=== PATIENT | male | born 1945 | race Caucasian/White ===

== ENCOUNTER 2021-10-31 12:17 | Inpatient (IN) ==
[2021-10-31] MEDS ORDERED: Ipratropium/Albuterol Neb 3 ML IH ONE (13:48)
[2021-10-31 14:58] LABS: Basophils % 0.2 %; Eosinophils % 0.2 %; Hematocrit 35.6 % (37.5-50.1); Hemoglobin 11.5 g/dL (12.9-16.9); Immature Granulocytes % 0.4 % (0-4); Lymphocytes # 0.8 K/mcL (0.6-4.6); Lymphocytes % 17.4 %; Mean Corpuscular HGB Conc 32.3 g/dL (31.6-35.5); Mean Platelet Volume 10.4 fL (9.4-12.4); Monocytes # 0.3 K/mcL (0.0-1.3); Monocytes % 6.6 %; Neutrophils # 3.6 K/mcL (1.6-8.9); Platelet Count 119 K/mcL (140-400); Red Blood Count 3.71 M/mcL (4.19-5.50); Red Cell Distribution Width 13.7 % (11.5-14.5); Segmented Neutrophils % 75.2 %; White Blood Count 4.8 K/mcL (4.3-11.1)
[2021-10-31 15:59] LABS: BUN/Creatinine Ratio 10 (6-26); Blood Urea Nitrogen 14 mg/dL (8-23); Calcium 8.6 mg/dL (8.6-10.3); Carbon Dioxide 25 mEq/L (23-29); Chloride 102 mEq/L (98-107); Glucose 90 mg/dL (70-105); Osmolality,Calculated 280 (280-300); Potassium 3.8 mEq/L (3.5-5.1); Sodium 135 mEq/L (136-145); Troponin I 0.04 ng/mL (< 0.04); eGFR For African Americans > 60 (> 60); eGFR For Non-African Americans 50 (> 60)
[2021-10-31] MEDS ORDERED: Aspirin 325 MG TABLET PO ONE (16:10)
[2021-10-31] MEDS ORDERED: Ondansetron 4 MG/2 ML VIAL IVP PRN (16:36)
[2021-10-31] MEDS ORDERED: Acetaminophen 325 MG TABLET PO PRN (16:36)
[2021-10-31] MEDS ORDERED: Aspirin 81 MG TAB.CHEW PO ONE (16:36)
[2021-10-31] MEDS ORDERED: Melatonin 3 MG TABLET PO PRN (16:36)
[2021-10-31] MEDS ORDERED: Ringers Solution, Lactated 500 ML IVC ONE (18:04)
[2021-10-31] MEDS ORDERED: Ringers Solution, Lactated 1,000 ML IVC ONE (18:04)
[2021-10-31] MEDS: traZODone 50 MG TABLET PO SCH (19:36)
[2021-10-31 20:58] LABS: Influenza A PCR Negative (Negative); Influenza B PCR Negative (Negative); Resp. Syncytial Virus PCR Negative (Negative)
[2021-10-31 21:13] LABS: SARS-CoV-2 by PCR (In House) Positive (Negative)
[2021-11-01] MEDS ORDERED: *HR* Enoxaparin 40 MG/0.4 ML SYRINGE SQ SCH (06:00)
[2021-11-01 07:43] LABS: Hemoglobin 11.5 g/dL (12.9-16.9)
[2021-11-01 07:45] LABS: Hematocrit 35.6 % (37.5-50.1); Immature Platelets 4.7 % (1.1-6.1); Mean Corpuscular HGB Conc 32.3 g/dL (31.6-35.5); Mean Corpuscular Hemoglobin 31.1 pg (28.0-33.3); Mean Corpuscular Volume 96.2 fL (83.0-100.0); Mean Platelet Volume 10.9 fL (9.4-12.4); Red Blood Count 3.7 M/mcL (4.19-5.50); Red Cell Distribution Width 13.3 % (11.5-14.5); White Blood Count 5.3 K/mcL (4.3-11.1)
[2021-11-01 08:03] LABS: BUN/Creatinine Ratio 13 (6-26); Blood Urea Nitrogen 16 mg/dL (8-23); Calcium 8.9 mg/dL (8.6-10.3); Carbon Dioxide 25 mEq/L (23-29); Chloride 103 mEq/L (98-107); Glucose 109 mg/dL (70-105); Magnesium 1.8 mg/dL (1.6-2.6); Osmolality,Calculated 284 (280-300); Phosphorous 2.2 mg/dL (2.7-4.5); Potassium 3.9 mEq/L (3.5-5.1); Sodium 136 mEq/L (136-145); Troponin I < 0.03 ng/mL (< 0.04); eGFR For African Americans > 60 (> 60); eGFR For Non-African Americans 59 (> 60)
[2021-11-01] MEDS ORDERED: Dexamethasone Sodium Phos/PF 10 MG/ML VIAL IVP SCH (09:00)
[2021-11-01] MEDS: Aspirin 81 MG TAB.CHEW PO SCH (09:27)
[2021-11-01] MEDS: Venlafaxine XR (24 HR) 150 MG CAP.ER.24H PO SCH (09:27)
[2021-11-01] MEDS: Finasteride 5 MG TABLET PO SCH (09:27)
[2021-11-01] MEDS: lisinopriL 10 MG TABLET PO SCH (14:05)
[2021-11-01] MEDS: Isosorbide MONOnitrate (24 HR) 60 MG TAB.ER.24H PO SCH (14:05)
[2021-11-01] MEDS: traZODone 50 MG TABLET PO SCH (22:22)
[2021-11-01] MEDS: *HR* Dabigatran 150 MG CAPSULE PO SCH (22:22)
[2021-11-02] MEDS: Venlafaxine XR (24 HR) 150 MG CAP.ER.24H PO SCH (10:49)
[2021-11-02] MEDS: *HR* Dabigatran 150 MG CAPSULE PO SCH ×2 (10:49→20:13)
[2021-11-02] MEDS: Furosemide 20 MG/2 ML VIAL IVP SCH ×2 (10:50→18:19)
[2021-11-02] MEDS: Finasteride 5 MG TABLET PO SCH (10:50)
[2021-11-02] MEDS: Dexamethasone Sodium Phos/PF 10 MG/ML VIAL IVP SCH (10:50)
[2021-11-02] MEDS: Aspirin 81 MG TAB.CHEW PO SCH (10:50)
[2021-11-02] MEDS: Isosorbide MONOnitrate (24 HR) 60 MG TAB.ER.24H PO SCH (10:51)
[2021-11-02] MEDS: lisinopriL 10 MG TABLET PO SCH (10:51)
[2021-11-02] MEDS: traZODone 50 MG TABLET PO SCH (20:13)
[2021-11-03 03:07] LABS: Hematocrit 33.4 % (37.5-50.1); Hemoglobin 11.2 g/dL (12.9-16.9); Mean Corpuscular HGB Conc 33.5 g/dL (31.6-35.5); Mean Corpuscular Hemoglobin 31.6 pg (28.0-33.3); Mean Corpuscular Volume 94.4 fL (83.0-100.0); Mean Platelet Volume 10.1 fL (9.4-12.4); Platelet Count 139 K/mcL (140-400); Red Blood Count 3.54 M/mcL (4.19-5.50); Red Cell Distribution Width 13.1 % (11.5-14.5)
[2021-11-03 03:09] LABS: White Blood Count 8.6 K/mcL (4.3-11.1)
[2021-11-03 03:27] LABS: BUN/Creatinine Ratio 19 (6-26); Blood Urea Nitrogen 24 mg/dL (8-23); C-Reactive Protein 123 mg/L (Less than 10); Calcium 9.8 mg/dL (8.6-10.3); Carbon Dioxide 26 mEq/L (23-29); Chloride 105 mEq/L (98-107); Glucose 111 mg/dL (70-105); Osmolality,Calculated 289 (280-300); Phosphorous 2.2 mg/dL (2.7-4.5); Potassium 4.3 mEq/L (3.5-5.1); Sodium 137 mEq/L (136-145); eGFR For African Americans > 60 (> 60); eGFR For Non-African Americans 55 (> 60)
[2021-11-03] MEDS: Furosemide 20 MG/2 ML VIAL IVP SCH ×2 (09:15→17:58)
[2021-11-03] MEDS: Aspirin 81 MG TAB.CHEW PO SCH (09:15)
[2021-11-03] MEDS: Dexamethasone Sodium Phos/PF 10 MG/ML VIAL IVP SCH (09:15)
[2021-11-03] MEDS: Venlafaxine XR (24 HR) 150 MG CAP.ER.24H PO SCH (09:15)
[2021-11-03] MEDS: Finasteride 5 MG TABLET PO SCH (09:29)
[2021-11-03] MEDS: *HR* Dabigatran 150 MG CAPSULE PO SCH ×2 (09:29→19:09)
[2021-11-03 16:54] LABS: Alanine Aminotransferase 20 Units/L (7-52); Albumin 3.3 g/dL (3.5-5.7); Albumin/Globulin Ratio 1.3 (1.1-2.2); Alkaline Phosphatase 48 Units/L (34-104); Aspartate Amino Transferase 28 Units/L (13-39); Bilirubin,Direct 0.1 mg/dL (0.0-0.2); Bilirubin,Indirect 0.5 mg/dL (0.0-1.0); Bilirubin,Total 0.6 mg/dL (0.3-1.0); Globulin 2.6 g/dL (2.4-3.5); Total Protein 5.9 g/dL (6.4-8.9)
[2021-11-03] MEDS ORDERED: TOCILIZUMAB 800 MG in 0.9 % Sodium Chloride 100 ML IVPB ONE (17:30)
[2021-11-03] MEDS: traZODone 50 MG TABLET PO SCH (19:10)
[2021-11-04] MEDS: *HR* Dabigatran 150 MG CAPSULE PO SCH (08:18)
[2021-11-04] MEDS: Venlafaxine XR (24 HR) 150 MG CAP.ER.24H PO SCH (08:18)
[2021-11-04] MEDS: Finasteride 5 MG TABLET PO SCH (08:18)
[2021-11-04] MEDS: Furosemide 20 MG/2 ML VIAL IVP SCH (08:21)
[2021-11-04] MEDS: Aspirin 81 MG TAB.CHEW PO SCH (08:21)
[2021-11-04] MEDS: Dexamethasone Sodium Phos/PF 10 MG/ML VIAL IVP SCH (08:22)
[2021-11-04] MEDS ORDERED: Milk and Molasses Enema 200 ML RC ONE (14:45)
[2021-11-04] MEDS: Sennosides/Docusate Sodium TABLET PO SCH ×2 (15:26→20:26)
[2021-11-04] MEDS: MOM Conc 10 ML UD.LIQ PO SCH (15:26)
[2021-11-04] MEDS: traZODone 50 MG TABLET PO SCH (20:27)
[2021-11-04] MEDS: *HR* LORazepam 2 MG/ML VIAL IVP PRN (21:56)
[2021-11-04] MEDS ORDERED: CLEAR EYES NATURAL TEARS 15 ML BOTTLE BOTH EYES PRN (22:08)
[2021-11-05 00:44] LABS: Hematocrit 37.3 % (37.5-50.1); Hemoglobin 12.5 g/dL (12.9-16.9); Mean Corpuscular HGB Conc 33.5 g/dL (31.6-35.5); Mean Corpuscular Hemoglobin 31.2 pg (28.0-33.3); Platelet Count 170 K/mcL (140-400); Red Blood Count 4.01 M/mcL (4.19-5.50); Red Cell Distribution Width 12.8 % (11.5-14.5); White Blood Count 7.5 K/mcL (4.3-11.1)
[2021-11-05 01:03] LABS: BUN/Creatinine Ratio 27 (6-26); Blood Urea Nitrogen 29 mg/dL (8-23); Calcium 10.9 mg/dL (8.6-10.3); Carbon Dioxide 26 mEq/L (23-29); Chloride 103 mEq/L (98-107); Glucose 101 mg/dL (70-105); Osmolality,Calculated 290 (280-300); Phosphorous 2.6 mg/dL (2.7-4.5); Potassium 4.1 mEq/L (3.5-5.1); Sodium 137 mEq/L (136-145); eGFR For African Americans > 60 (> 60); eGFR For Non-African Americans > 60 (> 60)
[2021-11-05] MEDS: *HR* LORazepam 2 MG/ML VIAL IVP PRN (03:45)
[2021-11-05] MEDS: *HR* FentaNYL (PF) 100 MCG/2 ML VIAL IVP PRN ×4 (04:19→13:36)
[2021-11-05] MEDS: Venlafaxine XR (24 HR) 150 MG CAP.ER.24H PO SCH (08:42)
[2021-11-05] MEDS: Sennosides/Docusate Sodium TABLET PO SCH ×2 (08:42→20:39)
[2021-11-05] MEDS: Aspirin 81 MG TAB.CHEW PO SCH (08:42)
[2021-11-05] MEDS: MOM Conc 10 ML UD.LIQ PO SCH (08:42)
[2021-11-05] MEDS: Finasteride 5 MG TABLET PO SCH ×2 (10:01→12:03)
[2021-11-05] MEDS: Morphine Sulfate Oral CONC 10 MG/0.5 ML ORAL.SYG SL SCH ×2 (12:01→17:36)
[2021-11-05] MEDS: Dexamethasone Sodium Phos/PF 10 MG/ML VIAL IVP SCH (13:36)
[2021-11-05] MEDS: Furosemide 20 MG/2 ML VIAL IVP SCH (17:35)
[2021-11-05 18:58] VITALS: TEMP 98.4
[2021-11-05] MEDS: traZODone 50 MG TABLET PO SCH (20:39)
[2021-11-05 23:40] VITALS: PULSE 76
[2021-11-06] MEDS: Morphine Sulfate Oral CONC 10 MG/0.5 ML ORAL.SYG SL SCH ×2 (00:25→06:20)
[2021-11-06 03:59] VITALS: BP 160/94; O2SAT 90
[2021-11-06] MEDS: *HR* LORazepam 2 MG/ML VIAL IVP PRN ×2 (08:02→09:09)
[2021-11-06] MEDS: Furosemide 20 MG/2 ML VIAL IVP SCH (08:13)
[2021-11-06] MEDS: Aspirin 81 MG TAB.CHEW PO SCH (08:14)
[2021-11-06] MEDS: Sennosides/Docusate Sodium TABLET PO SCH (08:14)
[2021-11-06] MEDS: Finasteride 5 MG TABLET PO SCH (08:14)
[2021-11-06] MEDS: MOM Conc 10 ML UD.LIQ PO SCH (08:15)
[2021-11-06] MEDS: Venlafaxine XR (24 HR) 150 MG CAP.ER.24H PO SCH (08:25)
[2021-11-06] MEDS: Dexamethasone Sodium Phos/PF 10 MG/ML VIAL IVP SCH (08:25)
[2021-11-06] MEDS: *HR* FentaNYL (PF) 100 MCG/2 ML VIAL IVP PRN (09:21)
[2021-11-07] MEDS ORDERED: Dexamethasone Sodium Phos/PF 10 MG/ML VIAL IVP SCH ×2 (09:00)
== END 2021-11-06 10:30 | disposition expired | DRG 177 ==
LOC: EMEROOARM 12:17 → SUATTDRO 17:00 → 3NENU 17:00
PROVIDERS: ADMIT Internal Medicine; ATTEND Family Medicine